=== PATIENT | female | born 1990 | race African-American/Black ===

== ENCOUNTER 2023-06-30 18:48 | Emergency (ER) | payer MEDICAID, OTHER ==
[~2023-06-30] VITALS: Ht 165.1 cm; Wt 54.4 kg
[2023-06-30 19:22] VITALS: BP 125/78; PULSE 82; RESP 18; TEMP 98; O2SAT 98
[2023-06-30] MEDS ORDERED: SULF-59 PO (21:13)
== END 2023-06-30 21:40 | disposition home or self-care (01) ==
LOC: MED 18:48
DX: N61.0 Mastitis without abscess (principal); R22.0 Localized swelling, mass and lump, head; Z79.899 Other long term (current) drug therapy
CPT/HCPCS: 99283